=== PATIENT | male | born 1955 | race Caucasian/White ===

== ENCOUNTER 2017-12-11 10:01 | Emergency (ER) | payer MEDICAID, SELFPAY ==
[2017-12-11 10:02] VITALS: BP 128/84; PULSE 112; RESP 20; TEMP 36.9; O2SAT 97; BMI 27.8
--- NOTE | 2017-12-11 10:20 | EKG12_ITS ---
Test Reason : CONFUSION Blood Pressure : / mmHG Vent. Rate : 107 BPM Atrial Rate : 107 BPM P-R Int : 164 ms QRS Dur : 084 ms QT Int : 342 ms P-R-T Axes : 047 090 000 degrees QTc Int : 456 ms Sinus tachycardia Otherwise normal ECG Confirmed by TALI WILLIAMSON, ANIVAL ([id number]), newspaper photo editor BRANDO GOMES ([id number]) on 12/13/2017 1:00:04 PM Referred By: JOYCE Confirmed By:ANIVAL CESAR MD
--- NOTE | 2017-12-11 10:21 | CT_ITS ---
STUDY: CT ABDOMEN AND PELVIS WITH CONTRAST REASON FOR EXAM: Male, 62 years old. Abdominal pain after fall. RADIATION DOSAGE (If Supplied By Facility): CTDIvol = ( 16.23 ) mGy, DLP = ( 1326.19 ) mGycm TECHNIQUE: Transaxial images were obtained from the dome of the diaphragm to the symphysis pubis without oral contrast. 100 ml of Isovue 300 contrast was administered. Sagittal and coronal images were reconstructed. Individualized dose optimization techniques were used for this CT. COMPARISON: None. FINDINGS: There is mild prominence of the bronchovascular markings at the lung bases. There may be small pericardial effusion versus pericardial thickening measuring approximately 8.9 mm in thickness. There are vascular calcifications of the coronary arteries. There are cystic lesions within the left lobe liver with the largest measuring 2 cm in greatest dimension. This has attenuation of 11 Hounsfield units consistent with cysts. Normal gallbladder and extrahepatic biliary system. Normal spleen. Normal pancreas. Normal bilateral adrenal glands. Right kidney is displaced cephalad by a loculated collection with air-fluid level. This loculated collection measures approximately 18.4 cm in cephalocaudal dimension by 9.4 cm in AP dimension by 10 cm in transverse dimension. This appears to involve the right psoas muscle and iliopsoas muscle. This could represent an abscess or infected hematoma. The left kidney has a mildly prominent renal pelvis. There is also apparent dilatation of left ureter. There is no evidence for ureteral calculus. There is a small hiatal hernia. There is no evidence for dilated bowel, ascites or pneumoperitoneum. Normal colon. There is non-visualization of the appendix. There is patchy atherosclerotic calcification of the abdominal aorta, without a demonstrated aneurysm. Normal inferior vena cava. Normal retroperitoneum. Urinary bladder is very distended. There are prostatic calcifications. Normal abdominal wall. There is degenerative disc disease at L4-5. CT/Abdomen/Pelvis W IV Cont ONLY IMPRESSION: 1. Apparent loculated collection in the right retroperitoneum displacing the right kidney. This has air-fluid level within it suggesting this could represent an abscess. It is unclear if this is related to the most recent episode of trauma. 2. Mild prominence of the left renal artery system and ureter without evidence for a calculus. However, the urinary bladder is very distended and urinary tract outlet obstruction cannot be excluded. 3. Hepatic cysts. N.B. : The above information has been verbally conveyed by Petty Samuel MD to Dr. Laura Pritchard, Covering Physician, on 12/11/2017 14:14:38 (ET). Electronically Signed: Petty Samuel MD at 13:22 EST , Service support , N.B. : The above information has been verbally conveyed by Petty Samuel MD to Dr. Laura Pritchard, Covering Physician, on 12/11/2017 14:14:38 (ET).
--- NOTE | 2017-12-11 10:22 | RAD_ITS ---
STUDY: X-RAY - LUMBAR SPINE REASON FOR EXAM: Male, 62 years old. Low back pain after fall. TECHNIQUE: 3 view(s) of the lumbar spine were obtained. COMPARISON: CT the abdomen and pelvis dated December 11, 2017. FINDINGS: There is an exaggerated lumbar lordosis. There is no substantial scoliosis. There is a normal alignment of the vertebrae. There is multilevel endplate spondylosis of the lumbar vertebrae. There is multi-level degenerative disc disease with multi-level disc space narrowing. There is no demonstrated fracture. Contrast is visible in the renal collecting systems and ureters secondary to recent enhanced CT. RAD/Lumbar Spine 2 or 3 Views IMPRESSION: No radiographic evidence to suggest acute compression or displaced fracture. Electronically Signed: Petty Samuel MD at 13:25 EST , Service support ,
--- NOTE | 2017-12-11 10:22 | CT_ITS ---
STUDY: CT BRAIN WITHOUT CONTRAST REASON FOR EXAM: Male, 62 years old. Increasing confusion. RADIATION DOSAGE (If Supplied By Facility): CTDIvol = ( 44.99 ) mGy, DLP = ( 796.11 ) mGycm TECHNIQUE: Transaxial CT imaging of the brain was performed without administration of intravenous contrast material. Multiplanar reformations are submitted for interpretation. Individualized dose optimization techniques were used for this CT. COMPARISON: None. FINDINGS: Normal soft tissue structures. Normal calvarium. There is mild cerebral atrophy with widening of the extra-axial spaces and ventricular dilatation. There are areas of decreased attenuation within the white matter tracts of the supratentorial brain, consistent with microvascular disease changes. Normal basal ganglia and thalami. Normal brainstem. There is mild cerebellar atrophy. There is no intracranial hemorrhage. There is mild atherosclerotic calcification of intracranial arteries. There is patchy mucoperiosteal thickening within the left-sided ethmoid sinuses and mucus retention cysts. CT/Brain/Head without Contrast IMPRESSION: 1. Chronic involutional changes of the brain. 2. No CT evidence of acute intracranial hemorrhage. Electronically Signed: Petty Samuel MD at 12:59 EST , Service support ,
--- NOTE | 2017-12-11 10:23 | ED.VISSUMM ---
- ER Visit Summary Date of Service: 12/11/17 Chief Complaint: [Change in mental status] History of Present Illness: The patient is a 62 M [was brought in by family because he is been more confused over the last several days. They state he fell at home and has been complaining of back pain. Patient states he does not feel confused. He is complaining of back pain. It is worse when he moves. He states it started this morning. He denies any trauma. He denies any headache chest pain shortness of breath or abdominal pain. Denies any nausea vomiting urine symptoms or diarrhea. He does not have a doctor has not seen a doctor in several years does not smoke does not drink alcohol does not take any medications does not have any allergies] Physical Examination: [] Blood pressure 128/84 heart rate 112 respiratory rate 20 WN WD NAD PERRL EOMI MMM NECK supple and nontender, no masses RRR no murmur rub or gallop, no peripheral edema, symmetric radial pulses CTAB no respiratory distress ABDOMEN is soft to palpation the right lower quadrant, normal bowel sounds, no distension, no rebound or guarding Right CVA tenderness SKIN is warm and dry no rashes Alert and Oriented x3, CN II-XII in tact, no motor or sensory deficits, gait normal No lymphadenopathy Test Results: [] Emergency Department Course and Treatment: [She is sinus tach at 107. Screening blood work shows an elevated white count at 24. Because of the patient's tachypnea and tachycardia as well as leukocytosis he does meet criteria for sepsis. Lactic acid was normal. CT of the abdomen and pelvis was obtained because of the patient's right lower quadrant pain and right CVA tenderness and shows a large retroperitoneal abscess involving the iliopsoas and displacing the right kidney. He was given Zosyn and vancomycin. Cultures were sent. Urinalysis was unremarkable. Lumbar x-ray showed no acute process. Patient remained stable. He was somnolent. Family reported increasing withdrawal over the last several months since May CT the head shows no acute process. I spoke with surgery who recommended transfer. Family requested [facility]. [facility] was contacted and I spoke with emergency room physician as well as Dr. Suazo's the surgeon.] Treatment Plan: [] Disposition: [Transfer] Impression: [1. Retroperitoneal abscess 2. Hyperglycemia 3. Sepsis] This note was generated with Dragon dictation software. It may contain incorrect words, spelling, and punctuation that were not noted in review of the chart prior to signing ED Disposition - Plan for ED Patient: Chief Complaint: Confusion
--- NOTE | 2017-12-11 10:28 | NURSING ---
NO OLD EKGS
[2017-12-11 10:37] LABS: Absolute Lymphocyte Count 1.32 X10^3/ul (0.83-4.51); Absolute Neutrophil Count 21.2 X10^3/uL (2.0-7.7); Basophil# 0.01 X10^3/uL; Differential Indicated SCAN CRITERIA MET; Hematocrit 39.7 % (40-54); Hemoglobin 13.2 g/dl (13.0-16.5); Lymphocyte # 1.32 X10^3/ul (4.0); Lymphocyte % 5.4 % (19-41); Mean Corp Hgb Conc 33.2 g/gl (32-36); Mean Corpuscular Hgb 27.8 pg (27.0-32.0); Mean Corpuscular Volume 83.6 fL (80-94); Mean Platelet Vol. 10.3 fl (6.2-12.0); Neutrophil # 21.16 X10^3/uL (2.7-7.7); Neutrophil % 87.3 % (47-70); POSITIVE COUNT NO; POSITIVE DIFFERENTIAL YES; POSITIVE MORPHOLOGY NO; Platelet Count 586 K/mm3 (150-450); RBC Distribution Width CV 15.2 % (11.6-14.6); RBC Distribution Width SD 46.2 fl (35.1-43.9); Red Blood Count 4.75 M/mm3 (4.6-6.2); White Blood Count 24.3 K/mm3 (4.4-11.0)
--- NOTE | 2017-12-11 10:43 | NURSING ---
CHEMISTRIES HEMOLIZED
[2017-12-11] MEDS: Ondansetron 4 MG/2 ML Vial IV (11:08)
[2017-12-11 11:44] LABS: ALB/GLOB Ratio 0.3 RATIO (0.9-2.4); AST(SGOT) 20 U/L (15-37); Alanine Aminotransfer ALT/SGPT 13 U/L (16-61); Albumin, Serum 1.9 g/dL (3.2-5.0); Alkaline Phosphatase 143 U/L (45-117); Anion Gap 22 (5-15); BUN 21 mg/dL (7-18); BUN/Creat Ratio 18.8 RATIO (10-20); Calcium,Total 9.6 mg/dL (8.5-10.1); Chloride 96 mmol/L (98-107); Creatinine, Serum 1.12 mg/dL (0.70-1.30); EST Glomerular Filtration Rate 70 mL/min (>60); Est Glom Filt Rate - Afr Amer 85 mL/min (>60); Estimated Creatinine Clearance 70.97 ml/min; Globulin 6.2 g/dL (2.2-4.2); Glucose 344 mg/dL (74-106); Potassium 4.7 mmol/L (3.5-5.1); Protein, Total 8.1 g/dL (6.4-8.2); Sodium Level 131 mmol/L (136-145)
[2017-12-11 13:05] VITALS: BP 119/77; PULSE 109; RESP 20; O2SAT 95
[2017-12-11 13:07] LABS: Red Blood Cells-Urine 0 SEEN /hpf (0-5); Squamous Epithelial Cells - UA 0 SEEN /hpf (0-5); White Blood Cells 0 SEEN /hpf (0-5)
[2017-12-11 13:16] LABS: Color, Urine Yellow (Yellow); Glucose, Dipstick 1000 mg/dl (Normal); Leukocyte Esterase-Dipstick Negative /ul (Negative); Nitrite-Dipstick Negative (Negative); Occult Blood-Urine Negative /ul (Negative); Protein-Dipstick 30 mg/dl (Negative); Urine Bilirubin Dipstick Negative (Negative); Urine Clarity Sl. Cloudy (Clear); Urine Urobilinogen Normal (Normal)
[2017-12-11 13:18] LABS: Ketone-Dipstick 150 mg/dl (Negative)
--- NOTE | 2017-12-11 13:18 | ED.RN ---
notified MD of urine ketones 150
[2017-12-11 13:24] LABS: Bacteria RARE /hpf (None Seen); Fine Granular Cast- Urine 0-5 SEEN /lpf (0-5); Mucous, Urine RARE /hpf (<or=2+)
--- NOTE | 2017-12-11 13:27 | ED.RN ---
called pharm for zosyn
[2017-12-11 13:29] LABS: Lactic Acid 1.4 mmol/L (0.4-2.0)
--- NOTE | 2017-12-11 14:13 | CM.ED ---
Addendum entered by Jinny Love 12/11/17 14:46: Becca Callahan, patient's obgjve-no-hom, may be reached at [phone] if unable to reach Matthew Callahan. Original Note: Social service consult requested by patient's brother, Matthew Callahan and Becca. SADIE PATIÑO spoke with patient, alone. Patient states he lives with his 85 yo mother. He does not drive and has no PCP or specialists. When asked what pharmacy he would like to use, patient shrugs. When asked why he was in the ER, patient states I couldn't get up. Patient denies knowledge of a recent fall. SADIE PATIÑO spoke with Matthew and Becca Callahan, privately. Matthew states concern that the patient is not caring for himself. He has no medical or dental care and has refused help in the past. Matthew states the patient has no personal hygiene and has refused to bathe in the past. Matthew states that patient was admitted to a psychiatric facility years ago and has a history of depression. Of note, patient has no insurance and is listed as self-pay. Matthew is not sure whether the patient has ever had Medicaid but feels the patient is likely to qualify. The family's stated main concern is the patient's mental health and that he is not able to care for himself. In addition, they did express that the manner in which behavioral health and self-care is approached may be received sensitively by the patient. table worker, Raeann Sweet, notified. Social work will follow with patient and family. Diane DONG, SADIE PATIÑO
[2017-12-11 14:31] VITALS: BP 123/72; PULSE 112; RESP 22; O2SAT 98
--- NOTE | 2017-12-11 15:47 | NURSING ---
CALLING [facility], TALKED TO [facility]
--- NOTE | 2017-12-11 16:04 | NURSING ---
PATIENT GOING ER TO ER. NO ACCEPTING DR KOROMA
--- NOTE | 2017-12-11 16:22 | ED.RN ---
report called to [facility] at [facility].
--- NOTE | 2017-12-11 16:30 | NURSING ---
CALLED [facility].
[2017-12-11 17:10] VITALS: BP 103/71; PULSE 111; RESP 18; O2SAT 96
[2017-12-11 17:30] VITALS: BP 112/73; PULSE 109; RESP 18; O2SAT 94
== END 2017-12-11 17:31 | disposition short-term general hospital (02) ==
PROVIDERS: Emergency Provider Emergency Medicine
DX: A41.9 Sepsis, unspecified organism (principal); K68.19 Other retroperitoneal abscess; R73.9 Hyperglycemia, unspecified
CPT/HCPCS: 70450; 72100; 74177; 80053; 81001; 82009; 83605; 84484; 85025; 93005; 96365; 96367; 96376; 99285; J7030; Q9967; A4216; J2405

== ENCOUNTER → 2018-01-10 05:00 | Outpatient (REF) | payer MEDICAID, SELFPAY ==
[2018-01-10 08:48] LABS: Hemoglobin A1c 9.3 % (4.2-6.3)
[2018-01-10 08:58] LABS: Hematocrit 37.1 % (40-54); Hemoglobin 11.8 g/dl (13.0-16.5); Mean Corp Hgb Conc 31.8 g/gl (32-36); Mean Corpuscular Hgb 28.4 pg (27.0-32.0); Mean Corpuscular Volume 89.4 fL (80-94); Mean Platelet Vol. 9.4 fl (6.2-12.0); Platelet Count 506 K/mm3 (150-450); RBC Distribution Width CV 18.9 % (11.6-14.6); RBC Distribution Width SD 60.8 fl (35.1-43.9); Red Blood Count 4.15 M/mm3 (4.6-6.2); White Blood Count 6.3 K/mm3 (4.4-11.0)
[2018-01-10 09:03] LABS: ALB/GLOB Ratio 0.6 RATIO (0.9-2.4); AST(SGOT) 18 U/L (15-37); Alanine Aminotransfer ALT/SGPT 18 U/L (16-61); Albumin, Serum 2.6 g/dL (3.2-5.0); Alkaline Phosphatase 68 U/L (45-117); Anion Gap 12 (5-15); BUN 10 mg/dL (7-18); Calcium,Total 8.3 mg/dL (8.5-10.1); Chloride 104 mmol/L (98-107); Cholesterol 155 mg/dL (200); Creatinine, Serum 0.91 mg/dL (0.70-1.30); EST Glomerular Filtration Rate 89 mL/min (>60); Est Glom Filt Rate - Afr Amer 108 mL/min (>60); Globulin 4.5 g/dL (2.2-4.2); Glucose 63 mg/dL (74-106); High Density Lipoprotein 29 mg/dL; Magnesium 1.8 mg/dL (1.6-2.6); Potassium 3.9 mmol/L (3.5-5.1); Protein, Total 7.1 g/dL (6.4-8.2); Sodium Level 141 mmol/L (136-145); Thyroid Stim Hormone (TSH) 5.09 uIU/mL (0.358-3.74); Triglycerides 273 mg/dL; Very Low Density Lipoprotein 55 mg/dL (5-40)
[2018-01-10 09:08] LABS: Scan Indicated on CBC? Y/N NO
[2018-01-11 09:43] LABS: Vitamin D,25 Hydroxy 17.6 ng/mL (29.95-100.01)
== END ==
LOC: OLS.ACW100 05:00
PROVIDERS: Visit Provider Family Medicine
DX: K68.11 Postprocedural retroperitoneal abscess (principal); K68.19 Other retroperitoneal abscess; F31.9 Bipolar disorder, unspecified; D52.9 Folate deficiency anemia, unspecified
CPT/HCPCS: 36415; 80053; 80061; 82306; 83036; 83735; 84443; 85027

== ENCOUNTER → 2018-07-25 05:00 | Outpatient (REF) | payer MEDICAID, SELFPAY ==
[2018-07-25 08:28] LABS: Hemoglobin 14.3 g/dl (13.0-16.5); Mean Corp Hgb Conc 34.9 g/gl (32-36); Mean Corpuscular Hgb 30.2 pg (27.0-32.0); Mean Corpuscular Volume 86.7 fL (80-94); Platelet Count 283 K/mm3 (150-450); RBC Distribution Width CV 14.5 % (11.6-14.6); RBC Distribution Width SD 45.8 fl (35.1-43.9); Red Blood Count 4.73 M/mm3 (4.6-6.2); Scan Indicated on CBC? Y/N NO; White Blood Count 6.9 K/mm3 (4.4-11.0)
[2018-07-25 08:46] LABS: AST(SGOT) 17 U/L (15-37); Alanine Aminotransfer ALT/SGPT 31 U/L (16-61); Albumin, Serum 3.3 g/dL (3.2-5.0); Alkaline Phosphatase 61 U/L (45-117); Anion Gap 9 (5-15); BUN 25 mg/dL (7-18); BUN/Creat Ratio 18.4 RATIO (10-20); Bilirubin, Direct 0.08 mg/dL (0.00-0.30); Calcium,Total 8.9 mg/dL (8.5-10.1); Chloride 102 mmol/L (98-107); Cholesterol 234 mg/dL (200); Creatinine, Serum 1.36 mg/dL (0.70-1.30); EST Glomerular Filtration Rate 56 mL/min (>60); Est Glom Filt Rate - Afr Amer 68 mL/min (>60); Globulin 4.7 g/dL (2.2-4.2); Glucose 112 mg/dL (74-106); High Density Lipoprotein 25 mg/dL; Potassium 4.1 mmol/L (3.5-5.1); Sodium Level 137 mmol/L (136-145); Triglycerides 536 mg/dL
[2018-07-25 08:49] LABS: Hemoglobin A1c 6.5 % (4.2-6.3)
== END ==
LOC: OLS.ACW400 05:00
PROVIDERS: Visit Provider Family Medicine
DX: K68.11 Postprocedural retroperitoneal abscess (principal); K68.19 Other retroperitoneal abscess; K26.9 Duodenal ulcer, unspecified as acute or chronic, without hemorrhage or perforation; M62.81 Muscle weakness (generalized); B96.20 Unspecified Escherichia coli [E. coli] as the cause of diseases classified elsewhere
CPT/HCPCS: 36415; 80048; 80061; 80076; 83036; 85027

== ENCOUNTER → 2018-08-26 05:00 | Outpatient (REF) | payer MEDICAID, SELFPAY ==
[2018-08-26 08:50] LABS: ALB/GLOB Ratio 0.7 RATIO (0.9-2.4); AST(SGOT) 20 U/L (15-37); Alanine Aminotransfer ALT/SGPT 36 U/L (16-61); Albumin, Serum 3.2 g/dL (3.2-5.0); Alkaline Phosphatase 60 U/L (45-117); Anion Gap 11 (5-15); BUN 25 mg/dL (7-18); BUN/Creat Ratio 17.5 RATIO (10-20); Calcium,Total 9.1 mg/dL (8.5-10.1); Chloride 102 mmol/L (98-107); Cholesterol 148 mg/dL (200); Creatinine, Serum 1.43 mg/dL (0.70-1.30); EST Glomerular Filtration Rate 53 mL/min (>60); Est Glom Filt Rate - Afr Amer 64 mL/min (>60); Globulin 4.7 g/dL (2.2-4.2); Glucose 115 mg/dL (74-106); High Density Lipoprotein 26 mg/dL; Potassium 4.1 mmol/L (3.5-5.1); Protein, Total 7.9 g/dL (6.4-8.2); Sodium Level 136 mmol/L (136-145); Thyroid Stim Hormone (TSH) 3.49 uIU/mL (0.358-3.74); Triglycerides 314 mg/dL; Very Low Density Lipoprotein 63 mg/dL (5-40)
== END ==
LOC: OLS.ACW400 05:00
PROVIDERS: Visit Provider Family Medicine
DX: K68.11 Postprocedural retroperitoneal abscess (principal); K26.9 Duodenal ulcer, unspecified as acute or chronic, without hemorrhage or perforation; M62.81 Muscle weakness (generalized); B96.20 Unspecified Escherichia coli [E. coli] as the cause of diseases classified elsewhere
CPT/HCPCS: 36415; 80053; 80061; 84443

== ENCOUNTER → 2018-11-29 05:00 | Outpatient (REF) | payer MEDICAID, SELFPAY ==
[2018-11-29 08:09] LABS: Valproic Acid (Depakene) Level 30 ug/mL (50-100)
== END ==
LOC: OLS.ACW400 05:00
PROVIDERS: Visit Provider Family Medicine
DX: K68.11 Postprocedural retroperitoneal abscess (principal); F01.51 Vascular dementia, unspecified severity, with behavioral disturbance; E11.9 Type 2 diabetes mellitus without complications; E03.9 Hypothyroidism, unspecified; F31.9 Bipolar disorder, unspecified
CPT/HCPCS: 36415; 80164

== ENCOUNTER → 2019-03-03 04:00 | Outpatient (REF) | payer MEDICAID, SELFPAY ==
[2019-03-03 08:10] LABS: Valproic Acid (Depakene) Level 28 ug/mL (50-100)
== END ==
LOC: OLS.ACW400 04:00
PROVIDERS: Visit Provider Family Medicine
DX: K68.11 Postprocedural retroperitoneal abscess (principal); F01.51 Vascular dementia, unspecified severity, with behavioral disturbance; E11.9 Type 2 diabetes mellitus without complications; E03.9 Hypothyroidism, unspecified; F31.9 Bipolar disorder, unspecified
CPT/HCPCS: 36415; 80164

== ENCOUNTER → 2019-03-13 | Outpatient (REF) | payer SELFPAY ==
[2019-03-13 08:49] LABS: Hemoglobin 14.6 g/dl (13.0-16.5); Mean Corp Hgb Conc 33.2 g/gl (32-36); Mean Corpuscular Hgb 29.8 pg (27.0-32.0); Mean Corpuscular Volume 89.8 fL (80-94); Mean Platelet Vol. 10.2 fl (6.2-12.0); Platelet Count 238 K/mm3 (150-450); RBC Distribution Width CV 15.2 % (11.6-14.6); RBC Distribution Width SD 49.6 fl (35.1-43.9)
[2019-03-13 08:50] LABS: Scan Indicated on CBC? Y/N NO
[2019-03-13 09:12] LABS: Hemoglobin A1c 8.5 % (4.2-6.3)
[2019-03-13 10:21] LABS: AST(SGOT) 28 U/L (15-37); Alanine Aminotransfer ALT/SGPT 40 U/L (16-61); Alkaline Phosphatase 75 U/L (45-117); Anion Gap 10 (5-15); BUN 24 mg/dL (7-18); BUN/Creat Ratio 17.1 RATIO (10-20); Bilirubin, Direct < 0.05 mg/dL (0.00-0.30); Calcium,Total 8.5 mg/dL (8.5-10.1); Chloride 105 mmol/L (98-107); Cholesterol 141 mg/dL (200); EST Glomerular Filtration Rate 54 mL/min (>60); Est Glom Filt Rate - Afr Amer 65 mL/min (>60); Globulin 4.8 g/dL (2.2-4.2); Glucose 169 mg/dL (74-106); High Density Lipoprotein 30 mg/dL; Potassium 4.4 mmol/L (3.5-5.1); Protein, Total 7.8 g/dL (6.4-8.2); Sodium Level 137 mmol/L (136-145); Thyroid Stim Hormone (TSH) 3.15 uIU/mL (0.358-3.74); Triglycerides 241 mg/dL; Very Low Density Lipoprotein 48 mg/dL (5-40)
== END | disposition home or self-care (01) ==
LOC: OLS.ACW400 04:30
PROVIDERS: Visit Provider Family Medicine
DX: K68.11 Postprocedural retroperitoneal abscess (principal); F01.51 Vascular dementia, unspecified severity, with behavioral disturbance; E11.9 Type 2 diabetes mellitus without complications; E03.9 Hypothyroidism, unspecified; F31.9 Bipolar disorder, unspecified
CPT/HCPCS: 36415; 80048; 80061; 80076; 82533; 83036; 84443; 85027

== ENCOUNTER → 2019-06-02 05:00 | Outpatient (REF) | payer MEDICAID, SELFPAY ==
[2019-06-02 07:57] LABS: Valproic Acid (Depakene) Level 24 ug/mL (50-100)
== END ==
LOC: OLS.ACW400 05:00
DX: K68.11 Postprocedural retroperitoneal abscess (principal); F01.51 Vascular dementia, unspecified severity, with behavioral disturbance; E11.9 Type 2 diabetes mellitus without complications; E03.9 Hypothyroidism, unspecified; F31.9 Bipolar disorder, unspecified
CPT/HCPCS: 36415; 80164

== ENCOUNTER → 2019-07-14 05:00 | Outpatient (REF) | payer MEDICAID, SELFPAY ==
[2019-07-14 08:03] LABS: Hematocrit 43.6 % (40-54); Hemoglobin 13.9 g/dL (13.0-16.5); Mean Corp Hgb Conc 31.9 g/dL (32-36); Mean Corpuscular Hgb 29.1 pg (27.0-32.0); Mean Corpuscular Volume 91.2 fL (80-94); Mean Platelet Vol. 10.2 fl (6.2-12.0); Platelet Count 244 K/mm3 (150-450); RBC Distribution Width CV 14.4 % (11.6-14.6); RBC Distribution Width SD 48.5 fl (35.1-43.9); Red Blood Count 4.78 M/mm3 (4.6-6.2); White Blood Count 8.1 K/mm3 (4.4-11.0)
[2019-07-14 08:25] LABS: ALB/GLOB Ratio 0.7 RATIO (0.9-2.4); AST(SGOT) 18 U/L (15-37); Alanine Aminotransfer ALT/SGPT 37 U/L (16-61); Albumin, Serum 3.3 g/dL (3.2-5.0); Alkaline Phosphatase 64 U/L (45-117); Anion Gap 6 (5-15); BUN 20 mg/dL (7-18); BUN/Creat Ratio 13.5 RATIO (10-20); Calcium,Total 8.6 mg/dL (8.5-10.1); Chloride 101 mmol/L (98-107); Cholesterol 135 mg/dL (200); Creatinine, Serum 1.48 mg/dL (0.70-1.30); EST Glomerular Filtration Rate 51 mL/min (>60); Est Glom Filt Rate - Afr Amer 61 mL/min (>60); Globulin 4.7 g/dL (2.2-4.2); Glucose 95 mg/dL (74-106); High Density Lipoprotein 32 mg/dL; Potassium 4.1 mmol/L (3.5-5.1); Sodium Level 135 mmol/L (136-145); Thyroid Stim Hormone (TSH) 3.85 uIU/mL (0.358-3.74); Triglycerides 209 mg/dL; Very Low Density Lipoprotein 42 mg/dL (5-40)
[2019-07-14 08:54] LABS: Hemoglobin A1c 6.7 % (4.2-6.3)
[2019-07-14 09:19] LABS: Vitamin D,25 Hydroxy 60.2 ng/mL (29.95-100.01)
== END ==
LOC: OLS.ACW400 05:00
PROVIDERS: Visit Provider Family Medicine
DX: K68.11 Postprocedural retroperitoneal abscess (principal); F01.51 Vascular dementia, unspecified severity, with behavioral disturbance; E03.9 Hypothyroidism, unspecified; E11.9 Type 2 diabetes mellitus without complications; F31.9 Bipolar disorder, unspecified
CPT/HCPCS: 36415; 80053; 80061; 82306; 82533; 83036; 84443; 85027

== ENCOUNTER → 2019-09-01 04:00 | Outpatient (REF) | payer MEDICAID, SELFPAY ==
[2019-09-01 07:43] LABS: Valproic Acid (Depakene) Level 20 ug/mL (50-100)
== END ==
LOC: OLS.ACW400 04:00
PROVIDERS: Visit Provider Family Medicine
DX: K68.11 Postprocedural retroperitoneal abscess (principal); F01.51 Vascular dementia, unspecified severity, with behavioral disturbance; E11.9 Type 2 diabetes mellitus without complications; E03.9 Hypothyroidism, unspecified; E31.9 Polyglandular dysfunction, unspecified
CPT/HCPCS: 36415; 80164

== ENCOUNTER → 2019-12-01 05:00 | Outpatient (REF) | payer SELFPAY ==
[2019-12-01 08:35] LABS: Valproic Acid (Depakene) Level 19 ug/mL (50-100)
== END ==
LOC: OLS.ACW400 05:00
PROVIDERS: Visit Provider Family Medicine
DX: K68.11 Postprocedural retroperitoneal abscess (principal); F01.51 Vascular dementia, unspecified severity, with behavioral disturbance; E11.9 Type 2 diabetes mellitus without complications; E03.9 Hypothyroidism, unspecified; F31.9 Bipolar disorder, unspecified
CPT/HCPCS: 36415; 80164

== ENCOUNTER → 2020-03-01 05:00 | Outpatient (REF) | payer MEDICARE, SELFPAY ==
[2020-03-01 08:07] LABS: Valproic Acid (Depakene) Level 19 ug/mL (50-100)
== END ==
LOC: OLS.ACW300 05:00
PROVIDERS: Visit Provider Family Medicine
DX: K68.11 Postprocedural retroperitoneal abscess (principal); F01.51 Vascular dementia, unspecified severity, with behavioral disturbance; E11.9 Type 2 diabetes mellitus without complications; E03.9 Hypothyroidism, unspecified; F31.9 Bipolar disorder, unspecified
CPT/HCPCS: 36415; 80164

== ENCOUNTER → 2020-04-19 04:00 | Outpatient (REF) | payer MEDICARE, SELFPAY ==
[2020-04-19 07:50] LABS: Hematocrit 45.3 % (40-54); Hemoglobin 14.4 g/dL (13.0-16.5); Mean Corp Hgb Conc 31.8 g/dL (32-36); Mean Corpuscular Hgb 30.6 pg (27.0-32.0); Mean Corpuscular Volume 96.4 fL (80-94); Mean Platelet Vol. 10.5 fl (6.2-12.0); Platelet Count 246 K/mm3 (150-450); RBC Distribution Width CV 14.7 % (11.6-14.6); RBC Distribution Width SD 51.7 fl (35.1-43.9); White Blood Count 8.4 K/mm3 (4.4-11.0)
[2020-04-19 08:09] LABS: Hemoglobin A1c 6.8 % (3.8-5.6)
[2020-04-19 08:14] LABS: ALB/GLOB Ratio 0.7 RATIO (0.9-2.4); AST(SGOT) 16 U/L (15-37); Alanine Aminotransfer ALT/SGPT 43 U/L (16-61); Albumin, Serum 3.2 g/dL (3.2-5.0); Alkaline Phosphatase 57 U/L (45-117); Anion Gap 11 (5-15); BUN 25 mg/dL (7-18); BUN/Creat Ratio 18.1 RATIO (10-20); Calcium,Total 8.8 mg/dL (8.5-10.1); Chloride 101 mmol/L (98-107); Cholesterol 150 mg/dL (200); Creatinine, Serum 1.38 mg/dL (0.70-1.30); EST Glomerular Filtration Rate 55 mL/min (>60); Est Glom Filt Rate - Afr Amer 66 mL/min (>60); Globulin 4.7 g/dL (2.2-4.2); Glucose 171 mg/dL (74-106); High Density Lipoprotein 28 mg/dL; Potassium 4.3 mmol/L (3.5-5.1); Protein, Total 7.9 g/dL (6.4-8.2); Sodium Level 137 mmol/L (136-145); Thyroid Stim Hormone (TSH) 2.25 uIU/mL (0.358-3.74); Triglycerides 262 mg/dL; Very Low Density Lipoprotein 52 mg/dL (5-40)
[2020-04-19 08:41] LABS: Vitamin D,25 Hydroxy 70.7 ng/mL
== END ==
LOC: OLS.ACW300 04:00
PROVIDERS: Visit Provider Family Medicine
DX: K68.11 Postprocedural retroperitoneal abscess (principal); E03.9 Hypothyroidism, unspecified; F01.51 Vascular dementia, unspecified severity, with behavioral disturbance; E11.9 Type 2 diabetes mellitus without complications; F31.9 Bipolar disorder, unspecified
CPT/HCPCS: 36415; 80053; 80061; 82306; 83036; 84443; 85027

== ENCOUNTER → 2020-05-31 04:00 | Outpatient (REF) | payer MEDICARE, SELFPAY ==
[2020-05-31 08:51] LABS: Valproic Acid (Depakene) Level 23 ug/mL (50-100)
== END ==
LOC: OLS.ACW300 04:00
PROVIDERS: Referring Provider Family Medicine; Visit Provider Family Medicine
DX: K68.11 Postprocedural retroperitoneal abscess (principal); F01.51 Vascular dementia, unspecified severity, with behavioral disturbance; E11.9 Type 2 diabetes mellitus without complications; E03.9 Hypothyroidism, unspecified; F31.9 Bipolar disorder, unspecified
CPT/HCPCS: 36415; 80164

== ENCOUNTER → 2020-08-13 11:08 | Outpatient (REF) | payer MEDICARE, SELFPAY | LOC: OLS.ACW300 11:08 | PROVIDERS: Visit Provider Family Medicine | DX: Z03.818 Encounter for observation for suspected exposure to other biological agents ruled out (principal) | CPT/HCPCS: 87635; U0003 ==

== ENCOUNTER → 2020-08-19 13:10 | Outpatient (REF) | payer MEDICARE, SELFPAY | LOC: OLS.ACW300 13:10 | PROVIDERS: Referring Provider Family Medicine; Visit Provider Family Medicine | DX: Z03.818 Encounter for observation for suspected exposure to other biological agents ruled out (principal) | CPT/HCPCS: 87635; U0003 ==

== ENCOUNTER → 2020-08-30 05:00 | Outpatient (REF) | payer MEDICARE, SELFPAY ==
[2020-08-30 10:02] LABS: Valproic Acid (Depakene) Level 20 ug/mL (50-100)
== END ==
LOC: OLS.ACW300 05:00
PROVIDERS: Visit Provider Family Medicine
DX: K68.11 Postprocedural retroperitoneal abscess (principal); F01.51 Vascular dementia, unspecified severity, with behavioral disturbance; E11.9 Type 2 diabetes mellitus without complications; E03.9 Hypothyroidism, unspecified; F31.9 Bipolar disorder, unspecified
CPT/HCPCS: 36415; 80164

== ENCOUNTER → 2020-11-05 05:00 | Outpatient (REF) | payer MEDICARE, SELFPAY ==
[2020-11-05 08:23] LABS: Valproic Acid (Depakene) Level 22 ug/mL (50-100)
== END ==
LOC: OLS.ACW400 05:00
PROVIDERS: Visit Provider Family Medicine
DX: U07.1 COVID-19 (principal); R55 Syncope and collapse; N17.9 Acute kidney failure, unspecified; R09.02 Hypoxemia; F01.51 Vascular dementia, unspecified severity, with behavioral disturbance; E11.9 Type 2 diabetes mellitus without complications
CPT/HCPCS: 36415; 80164

== ENCOUNTER → 2020-11-19 05:00 | Outpatient (REF) | payer MEDICARE, SELFPAY ==
[2020-11-19 09:16] LABS: Hematocrit 42.9 % (40-54); Hemoglobin 13.8 g/dL (13.0-16.5); Mean Corp Hgb Conc 32.2 g/dL (32-36); Mean Corpuscular Hgb 30.2 pg (27.0-32.0); Mean Corpuscular Volume 93.9 fL (80-94); Mean Platelet Vol. 10.9 fl (6.2-12.0); Platelet Count 228 K/mm3 (150-450); Red Blood Count 4.57 M/mm3 (4.6-6.2); White Blood Count 7.8 K/mm3 (4.4-11.0)
[2020-11-19 09:48] LABS: ALB/GLOB Ratio 0.8 RATIO (0.9-2.4); AST(SGOT) 20 U/L (15-37); Alanine Aminotransfer ALT/SGPT 53 U/L (16-61); Alkaline Phosphatase 50 U/L (45-117); Anion Gap 7 (5-15); BUN 24 mg/dL (7-18); BUN/Creat Ratio 16.8 RATIO (10-20); Calcium,Total 8.7 mg/dL (8.5-10.1); Chloride 103 mmol/L (98-107); Creatinine, Serum 1.43 mg/dL (0.70-1.30); EST Glomerular Filtration Rate 52 mL/min (>60); Est Glom Filt Rate - Afr Amer 63 mL/min (>60); Glucose 106 mg/dL (74-106); Potassium 4.2 mmol/L (3.5-5.1); Sodium Level 137 mmol/L (136-145); Thyroid Stim Hormone (TSH) 4.03 uIU/mL (0.358-3.74)
[2020-11-19 09:51] LABS: Hemoglobin A1c 6.9 % (3.8-5.6)
== END ==
LOC: OLS.ACW400 05:00
PROVIDERS: Referring Provider Family Medicine; Visit Provider Family Medicine
DX: E11.9 Type 2 diabetes mellitus without complications (principal); R55 Syncope and collapse; N17.9 Acute kidney failure, unspecified; R09.02 Hypoxemia; F01.51 Vascular dementia, unspecified severity, with behavioral disturbance; E03.9 Hypothyroidism, unspecified
CPT/HCPCS: 36415; 80053; 82533; 83036; 84443; 85027

== ENCOUNTER → 2020-12-20 05:50 | Outpatient (REF) | payer MEDICARE, SELFPAY ==
[2020-12-20 09:30] LABS: Hematocrit 42.3 % (40-54); Hemoglobin 13.8 g/dL (13.0-16.5); Mean Corp Hgb Conc 32.6 g/dL (32-36); Mean Corpuscular Hgb 30.6 pg (27.0-32.0); Mean Corpuscular Volume 93.8 fL (80-94); Mean Platelet Vol. 10.7 fl (6.2-12.0); Platelet Count 230 K/mm3 (150-450); RBC Distribution Width CV 14.5 % (11.6-14.6); RBC Distribution Width SD 49.8 fl (35.1-43.9); Red Blood Count 4.51 M/mm3 (4.6-6.2)
[2020-12-20 10:17] LABS: AST(SGOT) 19 U/L (15-37); Alanine Aminotransfer ALT/SGPT 49 U/L (16-61); Albumin, Serum 3.2 g/dL (3.2-5.0); Alkaline Phosphatase 51 U/L (45-117); Anion Gap 8 (5-15); BUN 22 mg/dL (7-18); BUN/Creat Ratio 15.3 RATIO (10-20); Calcium,Total 8.9 mg/dL (8.5-10.1); Chloride 104 mmol/L (98-107); Cholesterol 136 mg/dL (200); Creatinine, Serum 1.44 mg/dL (0.70-1.30); EST Glomerular Filtration Rate 52 mL/min (>60); Est Glom Filt Rate - Afr Amer 63 mL/min (>60); Globulin 4.1 g/dL (2.2-4.2); Glucose 128 mg/dL (74-106); High Density Lipoprotein 31 mg/dL; Potassium 4.1 mmol/L (3.5-5.1); Protein, Total 7.3 g/dL (6.4-8.2); Sodium Level 138 mmol/L (136-145); Triglycerides 152 mg/dL; Very Low Density Lipoprotein 30 mg/dL (5-40)
[2020-12-20 10:52] LABS: Hemoglobin A1c 6.6 % (3.8-5.6)
[2020-12-23 06:01] LABS: Thyroid Stim Hormone (TSH) 3.49 uIU/mL (0.358-3.74)
== END ==
LOC: OLS.ACW400 05:50
PROVIDERS: Visit Provider Family Medicine
DX: E11.9 Type 2 diabetes mellitus without complications (principal); R55 Syncope and collapse; E27.1 Primary adrenocortical insufficiency; N17.9 Acute kidney failure, unspecified; R09.02 Hypoxemia; F01.51 Vascular dementia, unspecified severity, with behavioral disturbance; E03.9 Hypothyroidism, unspecified
CPT/HCPCS: 36415; 80048; 80061; 80076; 83036; 84443; 85027

== ENCOUNTER → 2020-12-27 05:00 | Outpatient (REF) | payer MEDICARE, SELFPAY ==
[2020-12-27 08:09] LABS: Hematocrit 42.3 % (40-54); Hemoglobin 13.8 g/dL (13.0-16.5); Mean Corp Hgb Conc 32.6 g/dL (32-36); Mean Corpuscular Volume 95.1 fL (80-94); Mean Platelet Vol. 10.5 fl (6.2-12.0); Platelet Count 262 K/mm3 (150-450); RBC Distribution Width CV 14.6 % (11.6-14.6); RBC Distribution Width SD 50.4 fl (35.1-43.9); Red Blood Count 4.45 M/mm3 (4.6-6.2); White Blood Count 6.5 K/mm3 (4.4-11.0)
[2020-12-27 08:18] LABS: Valproic Acid (Depakene) Level 19 ug/mL (50-100)
== END ==
LOC: OLS.ACW400 05:00
PROVIDERS: Referring Provider Family Medicine; Visit Provider Family Medicine
DX: E11.9 Type 2 diabetes mellitus without complications (principal); R55 Syncope and collapse; E27.1 Primary adrenocortical insufficiency; N17.9 Acute kidney failure, unspecified; R09.02 Hypoxemia; F01.51 Vascular dementia, unspecified severity, with behavioral disturbance; Z79.899 Other long term (current) drug therapy
CPT/HCPCS: 36415; 80164; 85027; 87086; 87088

== ENCOUNTER → 2021-01-31 05:00 | Outpatient (REF) | payer MEDICARE, MEDICAID, SELFPAY ==
[2021-01-31 07:57] LABS: Hematocrit 44.7 % (40-54); Hemoglobin 14.5 g/dL (13.0-16.5); Mean Corp Hgb Conc 32.4 g/dL (32-36); Mean Corpuscular Hgb 30.7 pg (27.0-32.0); Mean Corpuscular Volume 94.5 fL (80-94); Mean Platelet Vol. 10.6 fl (6.2-12.0); Platelet Count 257 K/mm3 (150-450); RBC Distribution Width CV 14.2 % (11.6-14.6); RBC Distribution Width SD 49.7 fl (35.1-43.9); Red Blood Count 4.73 M/mm3 (4.6-6.2); White Blood Count 7.4 K/mm3 (4.4-11.0)
[2021-01-31 08:07] LABS: Color, Urine Yellow (Yellow); Glucose, Dipstick 100 mg/dl (Normal); Ketone-Dipstick 15 mg/dl (Negative); Leukocyte Esterase-Dipstick Negative /ul (Negative); Nitrite-Dipstick Negative (Negative); Occult Blood-Urine Negative /ul (Negative); Protein-Dipstick 30 mg/dl (Negative); Specific Gravity, Urine 1.015 (1.002-1.030); Urine Bilirubin Dipstick Negative (Negative); Urine Clarity Sl. Cloudy (Clear); Urine Urobilinogen Normal (Normal)
[2021-01-31 08:21] LABS: ALB/GLOB Ratio 0.8 RATIO (0.9-2.4); AST(SGOT) 24 U/L (15-37); Alanine Aminotransfer ALT/SGPT 47 U/L (16-61); Albumin, Serum 3.2 g/dL (3.2-5.0); Alkaline Phosphatase 61 U/L (45-117); Anion Gap 7 (5-15); BUN 15 mg/dL (7-18); BUN/Creat Ratio 11.9 RATIO (10-20); Calcium,Total 8.9 mg/dL (8.5-10.1); Chloride 101 mmol/L (98-107); Creatinine, Serum 1.26 mg/dL (0.70-1.30); EST Glomerular Filtration Rate 61 mL/min (>60); Est Glom Filt Rate - Afr Amer 73 mL/min (>60); Globulin 3.9 g/dL (2.2-4.2); Glucose 109 mg/dL (74-106); Potassium 3.8 mmol/L (3.5-5.1); Protein, Total 7.1 g/dL (6.4-8.2); Sodium Level 137 mmol/L (136-145)
== END ==
LOC: OLS.ACW400 05:00
PROVIDERS: Referring Provider Family Medicine; Visit Provider Family Medicine
DX: E11.9 Type 2 diabetes mellitus without complications (principal); R55 Syncope and collapse; E27.1 Primary adrenocortical insufficiency; N17.9 Acute kidney failure, unspecified; R09.02 Hypoxemia; F01.51 Vascular dementia, unspecified severity, with behavioral disturbance; Z79.899 Other long term (current) drug therapy
CPT/HCPCS: 36415; 80053; 81002; 85027; 87077; 87086; 87088

== ENCOUNTER → 2021-02-03 05:00 | Outpatient (REF) | payer MEDICARE, MEDICAID, SELFPAY ==
[2021-02-03 08:08] LABS: Valproic Acid (Depakene) Level 13 ug/mL (50-100)
== END ==
LOC: OLS.ACW400 05:00
PROVIDERS: Referring Provider Family Medicine; Visit Provider Family Medicine
DX: U07.1 COVID-19 (principal); R55 Syncope and collapse; N17.9 Acute kidney failure, unspecified; R09.02 Hypoxemia; F01.51 Vascular dementia, unspecified severity, with behavioral disturbance; E11.9 Type 2 diabetes mellitus without complications
CPT/HCPCS: 36415; 80164

== ENCOUNTER → 2021-02-08 05:00 | Outpatient (REF) | payer MEDICARE, MEDICAID, SELFPAY ==
[2021-02-08 08:24] LABS: Hemoglobin A1c 6.3 % (3.8-5.6)
[2021-02-08 08:38] LABS: Vitamin B12 1214 pg/mL (211-911); Vitamin D,25 Hydroxy 48.4 ng/mL
== END ==
LOC: OLS.ACW400 05:00
PROVIDERS: Visit Provider Family Medicine
DX: E11.9 Type 2 diabetes mellitus without complications (principal); R55 Syncope and collapse; E27.1 Primary adrenocortical insufficiency; N17.9 Acute kidney failure, unspecified; R09.02 Hypoxemia; F01.51 Vascular dementia, unspecified severity, with behavioral disturbance; D52.9 Folate deficiency anemia, unspecified; E55.9 Vitamin D deficiency, unspecified
CPT/HCPCS: 36415; 82140; 82306; 82607; 82746; 83036

== ENCOUNTER → 2021-04-02 07:15 | Outpatient (REF) | payer MEDICARE, MEDICAID, SELFPAY ==
[2021-04-02 09:59] LABS: Valproic Acid (Depakene) Level 24 ug/mL (50-100)
== END ==
LOC: OLS.ACW300 07:15
PROVIDERS: Visit Provider Family Medicine
DX: F31.9 Bipolar disorder, unspecified (principal); E11.9 Type 2 diabetes mellitus without complications; R55 Syncope and collapse; E27.1 Primary adrenocortical insufficiency; N17.9 Acute kidney failure, unspecified; R09.02 Hypoxemia; F01.51 Vascular dementia, unspecified severity, with behavioral disturbance
CPT/HCPCS: 36415; 80164

== ENCOUNTER → 2021-06-16 05:00 | Outpatient (REF) | payer MEDICARE, MEDICAID, SELFPAY ==
[2021-06-16 08:54] LABS: Hematocrit 41.5 % (40-54); Hemoglobin 13.9 g/dL (13.0-16.5); Mean Corp Hgb Conc 33.5 g/dL (32-36); Mean Corpuscular Hgb 31.3 pg (27.0-32.0); Mean Corpuscular Volume 93.5 fL (80-94); Mean Platelet Vol. 10.5 fl (6.2-12.0); Platelet Count 219 K/mm3 (150-450); RBC Distribution Width CV 14.5 % (11.6-14.6); RBC Distribution Width SD 49.6 fl (35.1-43.9); Red Blood Count 4.44 M/mm3 (4.6-6.2); White Blood Count 7.1 K/mm3 (4.4-11.0)
[2021-06-16 09:08] LABS: Vitamin D,25 Hydroxy 68.5 ng/mL
[2021-06-16 09:10] LABS: Hemoglobin A1c 7.1 % (3.8-5.6)
[2021-06-16 09:21] LABS: ALB/GLOB Ratio 0.8 RATIO (0.9-2.4); AST(SGOT) 20 U/L (15-37); Alanine Aminotransfer ALT/SGPT 46 U/L (16-61); Albumin, Serum 3.1 g/dL (3.2-5.0); Alkaline Phosphatase 53 U/L (45-117); Anion Gap 6 (5-15); BUN 20 mg/dL (7-18); BUN/Creat Ratio 15.9 RATIO (10-20); Calcium,Total 8.2 mg/dL (8.5-10.1); Chloride 103 mmol/L (98-107); Cholesterol 147 mg/dL (200); Creatinine, Serum 1.26 mg/dL (0.70-1.30); EST Glomerular Filtration Rate 61 mL/min (>60); Est Glom Filt Rate - Afr Amer 73 mL/min (>60); Globulin 3.9 g/dL (2.2-4.2); Glucose 97 mg/dL (74-106); High Density Lipoprotein 48 mg/dL; Magnesium 1.7 mg/dL (1.6-2.6); Potassium 4.2 mmol/L (3.5-5.1); Sodium Level 136 mmol/L (136-145); Thyroid Stim Hormone (TSH) 3.15 uIU/mL (0.358-3.74); Triglycerides 272 mg/dL; Very Low Density Lipoprotein 54 mg/dL (5-40)
== END ==
LOC: OLS.ACW300 05:00
PROVIDERS: Referring Provider Family Medicine; Visit Provider Family Medicine
DX: E11.9 Type 2 diabetes mellitus without complications (principal); R55 Syncope and collapse; E27.1 Primary adrenocortical insufficiency; N17.9 Acute kidney failure, unspecified; R09.02 Hypoxemia; F01.51 Vascular dementia, unspecified severity, with behavioral disturbance; E55.9 Vitamin D deficiency, unspecified
CPT/HCPCS: 36415; 80053; 80061; 82306; 83036; 83735; 84443; 85027

== ENCOUNTER → 2021-09-28 05:00 | Outpatient (REF) | payer MEDICARE, MEDICAID, SELFPAY ==
[2021-09-28 09:54] LABS: Valproic Acid (Depakene) Level 17 ug/mL (50-100)
== END ==
LOC: OLS.ACW300 05:00
PROVIDERS: Visit Provider Family Medicine
DX: F01.51 Vascular dementia, unspecified severity, with behavioral disturbance (principal)
CPT/HCPCS: 36415; 80164

== ENCOUNTER → 2021-10-10 04:00 | Outpatient (REF) | payer MEDICARE, MEDICAID, SELFPAY ==
[2021-10-10 08:21] LABS: Hemoglobin A1c 8.6 % (3.8-5.6)
[2021-10-10 08:24] LABS: AST(SGOT) 23 U/L (15-37); Alanine Aminotransfer ALT/SGPT 47 U/L (16-61); Albumin, Serum 2.9 g/dL (3.2-5.0); Alkaline Phosphatase 58 U/L (45-117); Anion Gap 5 (5-15); BUN 22 mg/dL (7-18); BUN/Creat Ratio 16.5 RATIO (10-20); Bilirubin, Direct 0.05 mg/dL (0.00-0.30); Calcium,Total 8.7 mg/dL (8.5-10.1); Chloride 104 mmol/L (98-107); Cholesterol 103 mg/dL (200); Creatinine, Serum 1.33 mg/dL (0.70-1.30); EST Glomerular Filtration Rate 57 mL/min (>60); Est Glom Filt Rate - Afr Amer 69 mL/min (>60); Globulin 4.1 g/dL (2.2-4.2); Glucose 133 mg/dL (74-106); High Density Lipoprotein 28 mg/dL; Potassium 4.3 mmol/L (3.5-5.1); Sodium Level 138 mmol/L (136-145); Triglycerides 190 mg/dL; Very Low Density Lipoprotein 38 mg/dL (5-40)
== END ==
LOC: OLS.ACW300 04:00
PROVIDERS: Referring Provider Family Medicine; Visit Provider Family Medicine
DX: E11.9 Type 2 diabetes mellitus without complications (principal); R55 Syncope and collapse; E27.1 Primary adrenocortical insufficiency; N17.9 Acute kidney failure, unspecified; R09.02 Hypoxemia; F01.51 Vascular dementia, unspecified severity, with behavioral disturbance
CPT/HCPCS: 36415; 80048; 80061; 80076; 83036

== ENCOUNTER → 2021-12-12 | Outpatient (REF) | payer MEDICARE, MEDICAID, SELFPAY ==
[2021-12-12 11:40] LABS: Hematocrit 42.2 % (40-54); Hemoglobin 13.9 g/dL (13.0-16.5); Mean Corp Hgb Conc 32.9 g/dL (32-36); Mean Corpuscular Hgb 30.3 pg (27.0-32.0); Mean Corpuscular Volume 92.1 fL (80-94); Platelet Count 214 K/mm3 (150-450); RBC Distribution Width CV 14.5 % (11.6-14.6); RBC Distribution Width SD 48.8 fl (35.1-43.9); Red Blood Count 4.58 M/mm3 (4.6-6.2); White Blood Count 6.9 K/mm3 (4.4-11.0)
[2021-12-12 12:19] LABS: AST(SGOT) 30 U/L (15-37); Alanine Aminotransfer ALT/SGPT 43 U/L (16-61); Albumin, Serum 2.9 g/dL (3.2-5.0); Alkaline Phosphatase 65 U/L (45-117); Anion Gap 6 (5-15); BUN 24 mg/dL (7-18); BUN/Creat Ratio 18.5 RATIO (10-20); Bilirubin, Direct 0.06 mg/dL (0.00-0.30); Calcium,Total 8.3 mg/dL (8.5-10.1); Chloride 103 mmol/L (98-107); Cholesterol 95 mg/dL (200); EST Glomerular Filtration Rate 58 mL/min (>60); Est Glom Filt Rate - Afr Amer 71 mL/min (>60); Glucose 116 mg/dL (74-106); High Density Lipoprotein 26 mg/dL; Potassium 4.8 mmol/L (3.5-5.1); Protein, Total 6.9 g/dL (6.4-8.2); Sodium Level 136 mmol/L (136-145); Triglycerides 185 mg/dL; Very Low Density Lipoprotein 37 mg/dL (5-40)
[2021-12-12 12:22] LABS: Vitamin D,25 Hydroxy 77.9 ng/mL
[2021-12-12 14:11] LABS: Hemoglobin A1c 9.2 % (3.8-5.6)
== END | disposition home or self-care (01) ==
LOC: OLS.ACW400 04:00
PROVIDERS: PCP Family Medicine; Referring Provider Family Medicine; Visit Provider Family Medicine
DX: E11.9 Type 2 diabetes mellitus without complications (principal); N17.9 Acute kidney failure, unspecified; F01.51 Vascular dementia, unspecified severity, with behavioral disturbance; E27.1 Primary adrenocortical insufficiency; R55 Syncope and collapse; R09.02 Hypoxemia
CPT/HCPCS: 36415; 80048; 80061; 80076; 82306; 83036; 85027